=== PATIENT | female | born 1975 | race Caucasian/White ===

== ENCOUNTER 2017-11-12 16:52 | Emergency (ER) | payer OTHER ==
[~2017-11-12] VITALS: Ht 175.3 cm; Wt 181.4 kg
--- NOTE | 2017-11-12 17:00 | NUR ---
BIB [facility], RIGHT HEEL ULCER AND BLE PAIN. NAD NOTED. PT AAO X4, VSS. PENDING MD DAVID.
[2017-11-12] MEDS ORDERED: CEPHALEXIN MONOHYDRATE 500 MG CAPSULE PO STA (18:04)
[2017-11-12] MEDS ORDERED: SULFAMETH/TRIMETH 800/160 MG 1 UDTAB TABLET PO STA (18:04)
[2017-11-12] MEDS ORDERED: CEPHALEXIN MONOHYDRATE 500 MG CAPSULE PO ONE (18:11)
[2017-11-12] MEDS ORDERED: SULFAMETH/TRIMETH 800/160 MG 1 UDTAB TABLET PO ONE (18:11)
[2017-11-12] MEDS ORDERED: CLINDAMYCIN 900 MG/6 ML VIAL IM STA (18:16)
[2017-11-12] MEDS ORDERED: CLINDAMYCIN 900 MG/6 ML VIAL ONE (18:19)
--- NOTE | 2017-11-12 18:28 | NUR ---
ULTRASOUND AT BEDSIDE
--- NOTE | 2017-11-12 20:19 | NUR ---
Patient discharged to home in stable condition. Written and verbal after care instructions given. Patient verbalizes understanding of instruction. PT S/O AT BEDSIDE TO TAKE PT HOME.
[2017-11-12 20:21] VITALS: BP 137/65
== END 2017-11-12 20:21 | disposition home or self-care (01) ==
LOC: ER 16:53
DX: L89.621 Pressure ulcer of left heel, stage 1 (principal); E11.622 Type 2 diabetes mellitus with other skin ulcer; I10 Essential (primary) hypertension; M06.80 Other specified rheumatoid arthritis, unspecified site; M79.7 Fibromyalgia
CPT/HCPCS: 73630-TC; 93970-TC; A4606; J3490; Z7610